=== PATIENT | male | born 1965 | race Caucasian/White ===

== ENCOUNTER 2020-09-06 09:59 | Emergency (ER) | payer BC ==
[~2020-09-06] VITALS: Ht 177.8 cm; Wt 83.9 kg
[~2020-09-06 09:59] MED LIST: ROBAXIN-750750 MG PO
[2020-09-06] MEDS ORDERED: ACETAMINOPHEN 325 MG TAB PO ONE (10:15)
[2020-09-06] MEDS ORDERED: ASPIRIN 325 MG TAB PO ONE (10:15)
[2020-09-06] MEDS ORDERED: CYCLOBENZAPRINE HCL 10 MG TAB PO ONE (10:15)
[2020-09-06 10:41] LABS: BASOPHILS % 0.4 % (0.0-1.0); EOSINOPHILS # (AUTO) 0.1 (0.0-0.4); EOSINOPHILS % 0.9 % (0.0-6.0); HEMATOCRIT 43.3 % (38.2-49.6); HEMOGLOBIN 14.9 g/dL (14.0-18.0); LYMPHOCYTES # (AUTO) 1.6 (1.0-3.2); MEAN CORPUSCULAR HEMOGLOBIN 32.6 pg (28-32); MEAN CORPUSCULAR HGB CONC 34.4 g/dL (31-35); MEAN CORPUSCULAR VOLUME 94.7 fL (81-99); MONOCYTES # (AUTO) 0.6 (0.2-0.8); MONOCYTES % 10.1 % (4.4-11.3); NEUTROPHILS # (AUTO) 3.3 (2.1-6.9); NEUTROPHILS % 59.4 % (38.7-80.0); PLATELET COUNT 191 x10e3/uL (140-360); RED BLOOD COUNT 4.57 x10e6/uL (4.3-5.7)
[2020-09-06 11:43] LABS: ALANINE AMINOTRANSFERASE 21 IU/L (0-55); ALBUMIN 4.1 g/dL (3.5-5.0); ALKALINE PHOSPHATASE 55 IU/L (40-150); ANION GAP 13.9 mmol/L (8-16); BLOOD UREA NITROGEN 16 mg/dL (7-26); BUN/CREATININE RATIO 16 (6-25); CALCIUM 9.2 mg/dL (8.4-10.2); CARBON DIOXIDE 25 mmol/L (22-29); CHLORIDE 103 mmol/L (98-107); EST GLOMERULAR FILTRATION RATE > 60 ML/MIN (60-); GLUCOSE 93 mg/dL (74-118); POTASSIUM 3.9 mmol/L (3.5-5.1); SODIUM 138 mmol/L (136-145)
[2020-09-06] MEDS ORDERED: LIDOCAINE 4% PATCH TP SCH (13:00)
[2020-09-06] MEDS ORDERED: CYCLOBENZAPRINE5 MG PO (14:25)
[2020-09-06 15:00] VITALS: BP 171/81
== END 2020-09-06 15:01 | disposition home or self-care (01) ==
LOC: ER 10:35
DX: M54.9 Dorsalgia, unspecified (principal); R07.89 Other chest pain; Y99.0 Civilian activity done for income or pay; I10 Essential (primary) hypertension; G89.29 Other chronic pain; R94.31 Abnormal electrocardiogram [ECG] [EKG]
CPT/HCPCS: 36415; 71045; 80053; 84484; 85025; 93005; 99284

== ENCOUNTER 2024-05-09 11:52 | Observation (INO) | payer BC ==
[~2024-05-09] VITALS: Ht 177.8 cm; Wt 63.5 kg
[~2024-05-09 11:52] MED LIST changes: +CYCLOBENZAPRINE5 MG PO
[2024-05-09 12:11] VITALS: TEMP 98.4
[2024-05-09 13:09] LABS: BASOPHILS % 0.3 % (0.0-1.0); EOSINOPHILS % 0.3 % (0.0-6.0); HEMATOCRIT 43.1 % (38.2-49.6); HEMOGLOBIN 14.4 g/dL (14.0-18.0); LYMPHOCYTES # (AUTO) 0.9 (1.0-3.2); MEAN CORPUSCULAR HEMOGLOBIN 32.7 pg (28-32); MEAN CORPUSCULAR HGB CONC 33.4 g/dL (31-35); MONOCYTES # (AUTO) 0.6 (0.2-0.8); MONOCYTES % 9.2 % (4.4-11.3); NEUTROPHILS # (AUTO) 4.6 (2.1-6.9); NEUTROPHILS % 75.9 % (38.7-80.0); PLATELET COUNT 145 x10e3/uL (140-360); RED CELL DISTRIBUTION WIDTH 13.1 % (11.7-14.4); WHITE BLOOD COUNT 6.07 x10e3/uL (4.8-10.8)
[2024-05-09 13:24] LABS: ANION GAP 16.9 mmol/L (8-16); BILIRUBIN,TOTAL 0.4 mg/dL (0.2-1.2); CREATININE, SERUM 1.17 mg/dL (0.72-1.25); POTASSIUM 3.9 mmol/L (3.5-5.1)
[2024-05-09] MEDS: SODIUM CHLORIDE 0.9% 1000ML 1,000 ML IV ONE (13:34)
[2024-05-09 15:21] LABS: BILIRUBIN,URINE NEGATIVE (NEGATIVE); CLARITY,URINE SL CLOUDY (CLEAR); COLOR,URINE YELLOW (YELLOW); GLUCOSE, URINE NEGATIVE (NEGATIVE); KETONES,URINE NEGATIVE (NEGATIVE); LEUKOCYTE ESTERASE ,URINE NEGATIVE (NEGATIVE); NITRITE,URINE NEGATIVE (NEGATIVE); PH,URINE 7 (5 - 7); PROTEIN,URINE DIPSTICK NEGATIVE (NEGATIVE); URINE UROBILINOGEN 0.2 mg/dL (0.2 - 1)
[2024-05-09 15:32] LABS: WBC,URINE (MAN) 0-5 /HPF (0-5)
[2024-05-09] MEDS ORDERED: ONDANSETRON HCL INJ 2MG/ML 2ML 2 MG/ML VIAL IV PRN (16:15)
[2024-05-09] MEDS ORDERED: SODIUM CHLORIDE FLUSH 10 ML SYR INJ PRN (16:15)
[2024-05-09 18:59] LABS: CHOL/HDL RATIO 3.7 (3.9-4.7)
[2024-05-09 19:00] VITALS: PULSE 66; RESP 16
[2024-05-09] MEDS: ASPIRIN 81 MG CHEW TAB PO ONE (19:16)
[2024-05-09 19:19] LABS: THYROID STIMULATING HORMONE 1.861 uIU/mL (0.350-4.940)
[2024-05-09 19:42] VITALS: BP 145/67; PULSE 71; RESP 18; TEMP 98.3; O2SAT 98
[2024-05-09 20:17] VITALS: BP 145/67; PULSE 71; RESP 18; TEMP 98.3; O2SAT 98
[2024-05-09] MEDS ORDERED: OMEPRAZOLE40 MG PO (20:20)
[2024-05-09] MEDS ORDERED: LISINOPRIL-HCT1 EAC1 PO (20:20)
[2024-05-09 20:23] VITALS: BP 145/67; PULSE 71; RESP 18; TEMP 98.3; O2SAT 98
[2024-05-09 20:50] LABS: CREATINE KINASE 59 IU/L (30-200)
[2024-05-09 20:56] LABS: TROPONIN I < 0.001 ng/mL (0-0.300)
[2024-05-10] VITALS: BP 111/69; PULSE 58; RESP 18; TEMP 97.9; O2SAT 100
[2024-05-10 04:00] VITALS: BP 136/71; PULSE 68; RESP 18; TEMP 98.6; O2SAT 96
[2024-05-10 05:26] LABS: BASOPHILS % 0.4 % (0.0-1.0); EOSINOPHILS # (AUTO) 0.1 (0.0-0.4); EOSINOPHILS % 1.7 % (0.0-6.0); HEMATOCRIT 39.7 % (38.2-49.6); HEMOGLOBIN 13.5 g/dL (14.0-18.0); LYMPHOCYTES % 20.2 % (18.0-39.1); MEAN CORPUSCULAR HEMOGLOBIN 33.2 pg (28-32); MEAN CORPUSCULAR VOLUME 97.5 fL (81-99); MONOCYTES # (AUTO) 0.6 (0.2-0.8); MONOCYTES % 12.7 % (4.4-11.3); NEUTROPHILS # (AUTO) 3.1 (2.1-6.9); NEUTROPHILS % 64.8 % (38.7-80.0); PLATELET COUNT 144 x10e3/uL (140-360); RED BLOOD COUNT 4.07 x10e6/uL (4.3-5.7); WHITE BLOOD COUNT 4.71 x10e3/uL (4.8-10.8)
[2024-05-10 05:52] LABS: ALBUMIN 3.3 g/dL (3.5-5.0); ANION GAP 13.8 mmol/L (8-16); BILIRUBIN,TOTAL 0.4 mg/dL (0.2-1.2); CALCIUM 9.1 mg/dL (8.4-10.2); CREATININE, SERUM 0.94 mg/dL (0.72-1.25); POTASSIUM 3.8 mmol/L (3.5-5.1); TOTAL PROTEIN 6.6 g/dL (6.5-8.1)
[2024-05-10 06:07] LABS: CREATINE KINASE 67 IU/L (30-200)
[2024-05-10 06:22] LABS: TROPONIN I < 0.001 ng/mL (0-0.300)
[2024-05-10 08:14] VITALS: BP 113/63; PULSE 60; RESP 18; TEMP 98.4; O2SAT 97
[2024-05-10 09:00] VITALS: BP 113/63; PULSE 60; RESP 18; TEMP 98.4; O2SAT 97
[2024-05-10] MEDS: ASPIRIN 81 MG ENTERIC COATED PO SCH (09:46)
[2024-05-10 12:42] VITALS: BP 118/76; PULSE 69; RESP 16; TEMP 98.4; O2SAT 97
[2024-05-10] MEDS ORDERED: TOPROL XL25 MG PO (12:43)
[2024-05-10] MEDS ORDERED: ATORVASTATIN CA20 MG PO (12:43)
[2024-05-10] MEDS ORDERED: ASPIRIN EC81 MG PO (12:43)
[2024-05-10] MEDS ORDERED: ATORVASTATIN 20 MG TAB PO SCH (21:00)
[2024-05-11] MEDS ORDERED: METOPROLOL SUCCINATE 25 MG TAB XL PO SCH (09:00)
== END 2024-05-10 15:09 | disposition home or self-care (01) ==
LOC: ER 12:08 → ERHOLD 16:04 → MED/SURG3 19:46
PROVIDERS: ADMIT Internal Medicine; ATTEND Internal Medicine
DX: R07.89 Other chest pain (principal); R00.2 Palpitations; K29.70 Gastritis, unspecified, without bleeding; I10 Essential (primary) hypertension; F17.210 Nicotine dependence, cigarettes, uncomplicated; I07.1 Rheumatic tricuspid insufficiency; I70.0 Atherosclerosis of aorta; K21.9 Gastro-esophageal reflux disease without esophagitis; Z11.52 Encounter for screening for COVID-19; Z79.899 Other long term (current) drug therapy; Z79.82 Long term (current) use of aspirin
CPT/HCPCS: 36415 ×2; 71045; 80053 ×2; 80061; 81001; 82550 ×2; 83036; 83690; 84443; 84484 ×2; 85025 ×2; 93005; 93017; 93306; 99284; G0378 ×2; J7030; U0002